=== PATIENT | male | born 1970 | race Caucasian/White ===

== ENCOUNTER 2017-03-14 16:15 | Emergency (ER) | payer OTHER ==
[~2017-03-14] VITALS: Ht 182.9 cm; Wt 90.7 kg
[2017-03-14 16:20] VITALS: BP 147/84
[2017-03-14] MEDS ORDERED: LORAZEPAM 1 MG TABLET PO STA (16:51)
[2017-03-14] MEDS ORDERED: LORAZEPAM 1 MG TABLET ONE (17:00)
== END 2017-03-14 17:12 | disposition home or self-care (01) ==
LOC: ER 16:38
DX: Z76.0 Encounter for issue of repeat prescription (principal); G89.29 Other chronic pain; F17.200 Nicotine dependence, unspecified, uncomplicated
CPT/HCPCS: 99282; A4606; Z7610